=== PATIENT | male | born 1960 | race Caucasian/White ===

== ENCOUNTER 2019-09-21 12:55 | Inpatient (IN) | payer OTHER ==
[~2019-09-21] VITALS: Ht 177.8 cm; Wt 98.5 kg
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
[2019-09-21] MEDS ORDERED: ZIPRASIDONE 20 MG INJ IM ONE ×2 (13:30)
[2019-09-21 13:41] LABS: BASOPHILS # (AUTO) 0.08 x10^3/uL (0-0.1); BASOPHILS % (AUTO) 1 % (0-1); EOSINOPHILS # (AUTO) 0.01 x10^3/uL (0-0.4); EOSINOPHILS % (AUTO) 0 % (1-7); LYMPHOCYTES # (AUTO) 1.55 x10^3/uL (1-3.4); LYMPHOCYTES % (AUTO) 13 % (22-44); MD NO; MEAN CORPUSCULAR HEMOGLOBIN 33.4 pg (27.5-34.5); MEAN CORPUSCULAR HGB CONC 34.2 g/dL (33.2-36.2); MEAN CORPUSCULAR VOLUME 97.6 fL (81-97); MEAN PLATELET VOLUME 9.1 fL (7.4-10.4); MONOCYTES # (AUTO) 0.96 x10^3/uL (0.2-0.8); MONOCYTES % (AUTO) 8 % (2-9); NEUTROPHILS # (AUTO) 9.62 x10^3/uL (1.8-6.8); NEUTROPHILS % (AUTO) 79 % (42-75); PLATELET COUNT 208 x10^3/uL (130-400); RED BLOOD COUNT 4.96 x10^6/uL (4.38-5.82); RED CELL DISTRIBUTION WIDTH 14.2 % (9.4-14.8)
[2019-09-21 13:51] LABS: ALANINE AMINOTRANSFERASE 43 U/L (12-78); ALBUMIN 3.6 g/dL (3.4-5.0); ANION GAP 11 mmol/L (5-15); CHLORIDE 107 mmol/L (98-107); CREATININE 2.07 mg/dL (0.7-1.3)
--- NOTE | 2019-09-21 13:51 | NUR ---
Michela RM and Awilda RM went into room to administer medication per MAR, pt refused and stated that he "didnt need that." pt became agitated and began yelling at nurses to "run away" and "get the fk out" of his room. Pt now resting on gurney fully clothed. call light within reach.
[2019-09-21 13:53] LABS: ALKALINE PHOSPHATASE 84 U/L (45-117); BILIRUBIN,TOTAL 1.8 mg/dL (0.2-1.0); TOTAL PROTEIN 7.1 g/dL (6.4-8.2)
[2019-09-21] MEDS ORDERED: HALOPERIDOL 5 MG/ML IM ONE (14:00)
[2019-09-21] MEDS ORDERED: LORazepam 2 MG/ML, 1ML IM ONE (14:00)
[2019-09-21] MEDS ORDERED: DIPHENHYDRAMINE 50 MG/ML, 1ML IM ONE (14:00)
[2019-09-21 14:23] LABS: SALICYLATE LEVEL < 1.7 mg/dL (2.8-20.0)
--- NOTE | 2019-09-21 14:50 | NUR ---
Pt resting in gurney, given water for comfort, denies additional needs, pt report to RN that at "3:33 [he] is walking outta here no matter what." Pt stated that "security cant stop me from going."
[2019-09-21] MEDS ORDERED: LABETALOL 5MG/ML, 20ML IVPush ONE (15:00)
[2019-09-21] MEDS ORDERED: LABETALOL 5MG/ML, 20ML ONE (15:07)
--- NOTE | 2019-09-21 15:24 | NUR ---
pt resting in [facility], urine sample collected and walked to lab, denies additional needs, NAD, even and unlabored respirations, WCTM.
[2019-09-21 15:36] LABS: MICROSCOPIC AUTO
[2019-09-21 15:39] LABS: CULTURE INDICATED? NO
--- NOTE | 2019-09-21 15:42 | NUR ---
REPORT FROM HALEY. PT MONITORED, IN SECURE ROOM. RON OLIVIER AT BEDSIDE.
[2019-09-21 16:52] LABS: AMPHETAMINE SCREEN, URINE Negative (Negative); BARBITURATE SCREEN, URINE Negative (Negative); BENZODIAZEPINE SCREEN, URINE Negative (Negative); CANNABINOID SCREEN, URINE Positive (Negative); COCAINE SCREEN, URINE Negative (Negative); METHADONE SCREEN, URINE Negative (Negative); OPIATE SCREEN, URINE Negative (Negative)
[2019-09-21] MEDS ORDERED: DIPHENHYDRAMINE 50 MG/ML, 1ML IM PRN (17:00)
[2019-09-21] MEDS ORDERED: HALOPERIDOL 5 MG/ML IM PRN (17:00)
[2019-09-21] MEDS ORDERED: LORazepam 2 MG/ML, 1ML IM PRN (17:00)
[2019-09-21] MEDS ORDERED: DIVALPROEX 500 MG TABLET.DR PO SCH (17:00)
--- NOTE | 2019-09-21 17:15 | NUR ---
PT REFUSED MEDICATION. PT STATES "I DONT NEED THAT BUT THANK YOU FOR YOUR CONCERN", ADRYAN MISTRY
--- NOTE | 2019-09-21 17:56 | NUR ---
REPORT TO HEATHER.
[2019-09-21] MEDS ORDERED: DOCUSATE 100 MG CAPSULE PO PRN (18:00)
[2019-09-21] MEDS ORDERED: ONDANSETRON ODT 4 MG PO PRN (18:00)
[2019-09-21] MEDS ORDERED: PROMETHAZINE 25 MG/ML, 1ML IM PRN (18:00)
[2019-09-21] MEDS ORDERED: OXYcodone IR 5MG TABLET PO PRN (18:00)
[2019-09-21] MEDS ORDERED: BISACODYL 10 MG SUPP PR PRN (18:00)
[2019-09-21] MEDS ORDERED: POLYETHYLENE GLYCOL 17 GM PACKET PO PRN (18:00)
[2019-09-21] MEDS ORDERED: LORazepam 0.5MG TABLET PO PRN (18:00)
[2019-09-21] MEDS ORDERED: hydrALAzine 20 MG/ML, 1ML IVPush PRN (18:00)
[2019-09-21] MEDS ORDERED: LORazepam 1MG TABLET PO PRN ×4 (18:00)
[2019-09-21] MEDS ORDERED: LORazepam 2 MG/ML, 1ML IV PRN ×5 (18:00)
[2019-09-21] MEDS ORDERED: morphine SULFATE 10 MG/ML, 1ML IVPush PRN (18:00)
[2019-09-21] MEDS ORDERED: ONDANSETRON 2MG/ML, 2ML IVPush PRN (18:00)
[2019-09-21 18:09] LABS: FREE T4 (FREE THYROXINE) 1.22 ng/dL (0.76-1.46)
[2019-09-21] MEDS: PALIPERIDONE 3 MG TAB.ER.24 PO SCH (19:33)
[2019-09-21 20:20] VITALS: BP 135/86
[2019-09-21] MEDS: LACTATED RINGERS 1,000 ML IV SCH (21:31)
[2019-09-21] MEDS: PANTOPRAZOLE 40 MG IV IVPush SCH (21:45)
[2019-09-22 01:10] LABS: CLOSTRIDIUM DIFFICILE ANTIGEN NEGATIVE; CLOSTRIDIUM DIFFICILE TOXIN NEGATIVE (Negative)
[2019-09-22 01:29] VITALS: BP 159/92
[2019-09-22] MEDS: LACTATED RINGERS 1,000 ML IV SCH ×2 (04:48→10:19)
[2019-09-22 06:05] LABS: BASOPHILS # (AUTO) 0.04 x10^3/uL (0-0.1); BASOPHILS % (AUTO) 0 % (0-1); EOSINOPHILS # (AUTO) 0.04 x10^3/uL (0-0.4); EOSINOPHILS % (AUTO) 0 % (1-7); LYMPHOCYTES # (AUTO) 1.97 x10^3/uL (1-3.4); LYMPHOCYTES % (AUTO) 18 % (22-44); MD NO; MEAN CORPUSCULAR VOLUME 96.8 fL (81-97); MEAN PLATELET VOLUME 9.4 fL (7.4-10.4); MONOCYTES # (AUTO) 1.01 x10^3/uL (0.2-0.8); MONOCYTES % (AUTO) 9 % (2-9); NEUTROPHILS # (AUTO) 7.97 x10^3/uL (1.8-6.8); NEUTROPHILS % (AUTO) 72 % (42-75); PLATELET COUNT 149 x10^3/uL (130-400); RED BLOOD COUNT 4.51 x10^6/uL (4.38-5.82); RED CELL DISTRIBUTION WIDTH 14.1 % (9.4-14.8)
[2019-09-22 06:16] LABS: ANION GAP 8 mmol/L (5-15); CALCIUM 8.2 mg/dL (8.5-10.1); CHLORIDE 109 mmol/L (98-107)
[2019-09-22 06:20] LABS: ALANINE AMINOTRANSFERASE 36 U/L (12-78); ALKALINE PHOSPHATASE 80 U/L (45-117); CHOL/HDL RATIO 1.6; CHOLESTEROL, TOTAL 130 mg/dL (140-239); HDL CHOL % 64 % (26-37); HDL CHOLESTEROL (DIRECT) 83 mg/dL (40-60); LDL CHOLESTEROL,CALCULATED 32 mg/dL (54-169); LDL/HDL RATIO 0.4 (0.5-3.0); TOTAL PROTEIN 6.1 g/dL (6.4-8.2); TRIGLYCERIDES 77 mg/dL (50-200); VLDL CHOLESTEROL 15 mg/dL (0-25)
[2019-09-22 07:20] VITALS: BP 168/92
[2019-09-22] MEDS: PALIPERIDONE 3 MG TAB.ER.24 PO SCH ×2 (10:00→12:20)
[2019-09-22] MEDS: PANTOPRAZOLE 40 MG IV IVPush SCH ×2 (10:11→20:20)
[2019-09-22] MEDS: AMLODIPINE 5 MG TABLET PO SCH (12:20)
[2019-09-22 14:28] VITALS: BP 151/85
[2019-09-22] MEDS: QUETIAPINE 100MG TABLET PO PRN (20:20)
[2019-09-22 20:22] VITALS: BP 149/93
[2019-09-23 02:44] VITALS: BP 112/71
[2019-09-23 04:46] LABS: ALANINE AMINOTRANSFERASE 30 U/L (12-78); ALBUMIN 2.5 g/dL (3.4-5.0); ANION GAP 7 mmol/L (5-15); CALCIUM 7.9 mg/dL (8.5-10.1); CHLORIDE 111 mmol/L (98-107)
[2019-09-23 04:49] LABS: ALKALINE PHOSPHATASE 74 U/L (45-117); BILIRUBIN,TOTAL 2.3 mg/dL (0.2-1.0); TOTAL PROTEIN 5.9 g/dL (6.4-8.2)
[2019-09-23 10:43] VITALS: BP 121/72
[2019-09-23] MEDS: PANTOPRAZOLE 40 MG IV IVPush SCH ×2 (11:34→21:12)
[2019-09-23] MEDS: AMLODIPINE 5 MG TABLET PO SCH (11:34)
[2019-09-23] MEDS: PALIPERIDONE 3 MG TAB.ER.24 PO SCH (11:39)
[2019-09-23 14:58] VITALS: BP 146/77
[2019-09-23 19:20] VITALS: BP 139/95
[2019-09-23] MEDS: QUETIAPINE 100MG TABLET PO PRN (21:12)
[2019-09-24 05:42] VITALS: BP 97/47
[2019-09-24 07:44] VITALS: BP 149/93
[2019-09-24] MEDS: PANTOPRAZOLE 40 MG IV IVPush SCH ×2 (08:43→20:25)
[2019-09-24] MEDS: AMLODIPINE 5 MG TABLET PO SCH (08:44)
[2019-09-24] MEDS: PALIPERIDONE 3 MG TAB.ER.24 PO SCH (08:47)
[2019-09-24 15:05] VITALS: BP 119/78
[2019-09-24 19:43] VITALS: BP 148/79
[2019-09-24] MEDS: QUETIAPINE 100MG TABLET PO PRN (22:02)
[2019-09-25 01:08] VITALS: BP 91/63
[2019-09-25 07:15] VITALS: BP 109/82
[2019-09-25] MEDS: PALIPERIDONE 3 MG TAB.ER.24 PO SCH (08:00)
[2019-09-25] MEDS: PANTOPRAZOLE 40 MG IV IVPush SCH (08:00)
[2019-09-25] MEDS: AMLODIPINE 5 MG TABLET PO SCH (08:01)
[2019-09-25 13:50] VITALS: BP 120/79
[2019-09-25 19:30] VITALS: BP 137/88
[2019-09-25] MEDS: QUETIAPINE 100MG TABLET PO PRN (22:06)
[2019-09-26 03:00] VITALS: BP 124/70
[2019-09-26 07:09] VITALS: BP 113/74
[2019-09-26] MEDS: PALIPERIDONE 3 MG TAB.ER.24 PO SCH (08:22)
[2019-09-26] MEDS: AMLODIPINE 5 MG TABLET PO SCH (08:25)
[2019-09-26] MEDS: PANTOPRAZOLE 40MG TABLET PO SCH (08:25)
[2019-09-26 13:33] VITALS: BP 129/81
[2019-09-26 19:55] VITALS: BP 153/75
[2019-09-26] MEDS: QUETIAPINE 100MG TABLET PO PRN (22:23)
[2019-09-27 07:56] VITALS: BP 115/76
[2019-09-27] MEDS: AMLODIPINE 5 MG TABLET PO SCH (08:47)
[2019-09-27] MEDS: PALIPERIDONE 3 MG TAB.ER.24 PO SCH (08:48)
[2019-09-27] MEDS: PANTOPRAZOLE 40MG TABLET PO SCH (08:48)
[2019-09-27 13:02] VITALS: BP 103/77
[2019-09-27 18:31] VITALS: BP 128/92
[2019-09-27] MEDS: QUETIAPINE 100MG TABLET PO PRN (22:18)
[2019-09-28 01:29] VITALS: BP 132/87
[2019-09-28] MEDS: PANTOPRAZOLE 40MG TABLET PO SCH (06:32)
[2019-09-28 07:08] VITALS: BP 107/74
[2019-09-28] MEDS: PALIPERIDONE 3 MG TAB.ER.24 PO SCH (09:06)
[2019-09-28] MEDS: AMLODIPINE 5 MG TABLET PO SCH (09:06)
[2019-09-28] MEDS ORDERED: QUET100T PO (12:28)
[2019-09-28] MEDS ORDERED: DOCU100C33 PO (12:28)
[2019-09-28] MEDS ORDERED: AMLO-150 PO (12:28)
[2019-09-28] MEDS ORDERED: PANT40TA5 PO (12:28)
[2019-09-28 12:52] VITALS: BP 118/74
[2019-09-28] MEDS ORDERED: PALI3TAB2 PO (23:38)
== END 2019-09-28 16:40 | disposition home or self-care (01) | DRG 438 ==
LOC: ED 16:30 → EDIP 16:31 → ED 16:42 → 4WST 18:30
PROVIDERS: ADMIT Family Medicine; ATTEND Family Medicine
DX: K85.20 Alcohol induced acute pancreatitis without necrosis or infection (principal); N17.0 Acute kidney failure with tubular necrosis; F23 Brief psychotic disorder; E11.9 Type 2 diabetes mellitus without complications; F10.229 Alcohol dependence with intoxication, unspecified; F12.10 Cannabis abuse, uncomplicated; F17.200 Nicotine dependence, unspecified, uncomplicated; I10 Essential (primary) hypertension; K76.9 Liver disease, unspecified; Z91.14 Patient's other noncompliance with medication regimen; Z79.84 Long term (current) use of oral hypoglycemic drugs
CPT/HCPCS: 36415; 80053; 80061; 80307; 81001; 83036; 83690; 83735; 84439; 84443; 85025; 87324; 93005; 96374; 99285; G0378; C9113; J7120